=== PATIENT | male | born 1995 | race Caucasian/White ===

== ENCOUNTER 2025-06-16 17:25 | Emergency (ER) | payer MEDICAID ==
[~2025-06-16] VITALS: Ht 190.5 cm; Wt 90.7 kg
[2025-06-16] MEDS: IV NS 0.9% 1,000 ML BAG IV ONE (18:14)
[2025-06-16 18:22] LABS: PLATELET COUNT (AUTO) 272 K/uL (150-450); RED BLOOD CELL COUNT(AUTO) 4.49 MIL/uL (4.5-6.0); RED CELL DISTRIBUTION WIDTH 14.3 % (11.5-15.0); WHITE BLOOD COUNT (AUTO) 6.0 K/uL (4.3-11.0)
[2025-06-16 18:38] LABS: CALCIUM, SERUM 8.6 mg/dL (8.5-10.1); CREATININE 0.9 mg/dL (0.6-1.3); SODIUM SERUM 143 mmol/L (136-145); UREA NITROGEN, BLOOD 15 mg/dL (7-18)
[2025-06-16 18:43] LABS: ASPARTATE AMINOTRANSFERASE 14 U/L (15-37); TOTAL PROTEIN, SERUM 7.1 g/dL (6.4-8.2)
[2025-06-16 21:42] VITALS: BP 128/88; TEMP 98.3; O2SAT 99
== END 2025-06-16 21:42 | disposition home or self-care (01) ==
LOC: ER 17:32
DX: R55 Syncope and collapse (principal); R19.7 Diarrhea, unspecified; R11.2 Nausea with vomiting, unspecified
CPT/HCPCS: 99285; 96360; 71045; 93005; 85025; 80048; 80076; 36415; 84484 ×2; J7030